=== PATIENT | male | born 1940 | race Asian ===

== ENCOUNTER 2017-11-01 11:38 | Day surgery (SDC) | payer OTHER ==
[~2017-11-01 11:38] MED LIST: LIDOCAINE 2% (SDV) 5 ML INJ
[2017-11-01 12:32] LABS: ADD MAN DIFF? NO
[2017-11-01 12:34] LABS: WHITE BLOOD COUNT 4.7 10^3/ul (4.8-10.8)
[2017-11-01 12:34] LABS: BASOPHIL # 0.1 10^3/ul (0.0-0.1); BASOPHILS % 1.1 % (0.0-2.0); EOSINOPHILS # 0.3 10^3/ul (0.0-0.5); EOSINOPHILS % 5.8 % (0.0-7.0); HEMATOCRIT 32.4 % (42.0-52.0); LYMPHOCYTES # 1.7 10^3/ul (0.8-2.9); LYMPHOCYTES % 36.3 % (15.0-51.0); MEAN CORPUSCULAR HEMOGLOBIN 31.2 pg (29.0-33.0); MEAN CORPUSCULAR VOLUME 91.8 fl (82.0-101.0); MEAN PLATELET VOLUME 10.1 fl (7.4-10.4); MONOCYTE # 0.4 10^3/ul (0.3-0.9); MONOCYTES % 9.5 % (0.0-11.0); NEUTROPHIL # 2.2 10^3/ul (1.6-7.5); NEUTROPHILS % 47.1 % (39.0-77.0); PLATELET COUNT 126 10^3/UL (140-415); RED BLOOD COUNT 3.53 10^6/ul (4.70-6.10); RED CELL DISTRIBUTION WIDTH 13.4 % (11.5-14.5)
[2017-11-01 12:53] LABS: ALANINE AMINOTRANSFERASE 18 IU/L (13-69); ALBUMIN 3.4 g/dl (3.3-4.9); ALBUMIN/GLOBULIN RATIO 0.89; ALKALINE PHOSPHATASE 69 IU/L (42-121); ANION GAP 16 (8-16); ASPARTATE AMINO TRANSFERASE 16 IU/L (15-46); BILIRUBIN,INDIRECT 0.9 mg/dl (0-1.1); BILIRUBIN,TOTAL 0.9 mg/dl (0.2-1.3); CARBON DIOXIDE 22 mmol/L (21-31); CHLORIDE 111 mmol/L (97-110); GLUCOSE 100 mg/dl (70-220); INR 1.28; PROTIME 16.2 Sec (11.9-14.9); PT RATIO 1.3; TOTAL PROTEIN 7.2 g/dl (6.1-8.1)
[2017-11-01 12:56] LABS: BLOOD UREA NITROGEN 28 mg/dl (7-20); CREATININE 2.63 mg/dl (0.61-1.24); POTASSIUM 4.1 mmol/L (3.5-5.1); SODIUM 145 mmol/L (135-144)
[2017-11-01 13:06] LABS: PARTIAL THROMBOPLASTIN TIME 38.8 Sec (25.0-35.0)
[2017-11-01] MEDS ORDERED: DIPHENHYDRAMINE 50 MG INJ IV (14:30)
[2017-11-01] MEDS ORDERED: METOCLOPRAMIDE 10 MG INJ IV (14:30)
[2017-11-01] MEDS ORDERED: FENTAnyl 50 MCG/ML VIAL IV ×2 (14:30)
[2017-11-01] MEDS ORDERED: MEPERIDINE 25 MG INJ IV (14:30)
[2017-11-01] MEDS ORDERED: HYDROmorphONE (0.2 MG/ML) 10ML SYG IV ×2 (14:30)
[2017-11-01] MEDS ORDERED: POLYMYXIN/BACITRACIN 1L IRRIG (15:20)
[2017-11-01] MEDS: SOD CHLORIDE 0.9% 1,000 ML IV (15:22)
[2017-11-01] MEDS ORDERED: FENTAnyl 50 MCG/ML VIAL (15:39)
[2017-11-01] MEDS ORDERED: ROPIVACAINE 0.5 % 30 ML VIAL (15:47)
[2017-11-01] MEDS: CEFAZOLIN 1 GM/50 ML (PMX) 50 ML IVPB (15:54)
[2017-11-01] MEDS ORDERED: ROCURONIUM 50 MG INJ (15:57)
[2017-11-01] MEDS ORDERED: PROPOFOL 20 ML (15:57)
[2017-11-01] MEDS ORDERED: SUCCINYLCHOLINE CHLORIDE 100 MG/5 ML SYG IV (15:57)
[2017-11-01] MEDS ORDERED: CEFAZOLIN 1 GM INJ (15:57)
[2017-11-01] MEDS ORDERED: SUGAMMADEX SODIUM 200 MG/2 ML VIAL IV (15:57)
[2017-11-01] MEDS: BUPIVACAINE 0.25% (MPF) 30 ML INJ (16:02)
[2017-11-01] MEDS: HYDROmorphONE (0.2 MG/ML) 10ML SYG IV (16:57)
[2017-11-01] MEDS: ONDANSETRON 4 MG INJ IV (16:57)
[2017-11-01] MEDS ORDERED: HYDROCODONE/APAP (5/325) TAB PO (17:00)
== END 2017-11-01 18:55 | disposition home or self-care (01) ==
LOC: SDS 11:38
DX: K40.30 Unilateral inguinal hernia, with obstruction, without gangrene, not specified as recurrent (principal); I10 Essential (primary) hypertension; E11.9 Type 2 diabetes mellitus without complications; I48.91 Unspecified atrial fibrillation; I12.9 Hypertensive chronic kidney disease with stage 1 through stage 4 chronic kidney disease, or unspecified chronic kidney disease; N18.9 Chronic kidney disease, unspecified
CPT/HCPCS: 49507; 71045; 80053; 85025; 85610; 85730; 88302; 93005